=== PATIENT | female | born 1990 | race African-American/Black ===

== ENCOUNTER → 2019-12-14 | Outpatient (CLI) | payer OTHER | END | disposition home or self-care (01) | LOC: SONOGRAMA 13:08 | PROVIDERS: ATTEND Radiology Diagnostic Radiology | DX: Z34.81 Encounter for supervision of other normal pregnancy, first trimester (principal) ==

== ENCOUNTER 2024-10-22 09:33 | Outpatient (CLI) | payer OTHER | END 2024-10-23 13:47 | disposition home or self-care (01) | LOC: TOM 09:33 | PROVIDERS: ATTEND Otolaryngology Otology & Neurotology | DX: J01.00 Acute maxillary sinusitis, unspecified (principal) ==